=== PATIENT | male | born 1975 | race Caucasian/White ===

== ENCOUNTER 2019-05-25 10:19 | Day surgery (SDC) | payer OTHER ==
[2019-05-18 09:58] LABS: ABSOLUTE BASOPHILS # (AUTO) 0.1 10^3/uL (0.0-0.2); ABSOLUTE EOSINOPHILS # (AUTO) 0.6 10^3/uL (0.0-0.6); ABSOLUTE LYMPHOCYTES (AUTO) 1.8 10^3/uL (0.5-4.7); ABSOLUTE MONOCYTES (AUTO) 0.5 10^3/uL (0.1-1.4); ABSOLUTE NEUT (AUTO) 4.4 10^3/uL (1.7-8.2); EOSINOPHILS % (AUTO) 7.7 % (0-6); HEMATOCRIT 40.6 % (37.9-51.0); HEMOGLOBIN 14.2 g/dL (13.5-17.0); LYMPHOCYTES % (AUTO) 24.7 % (13-45); MEAN CORPUSCULAR HGB CONC 34.8 g/dL (32.0-36.0); MEAN CORPUSCULAR VOLUME 86 fl (80-97); MONOCYTES % (AUTO) 6.9 % (3-13); PLATELET COUNT 233 10^3/uL (150-450); RED BLOOD COUNT 4.71 10^6/uL (4.35-5.55); RED CELL DISTRIBUTION WIDTH 13.4 % (11.5-14.0); SEGMENTED NEUTROPHILS % (AUTO) 59.7 % (42-78); TOTAL CELLS COUNTED % (AUTO) 100 %; WHITE BLOOD COUNT 7.3 10^3/uL (4.0-10.5)
[2019-05-18 10:18] LABS: ANION GAP 9 (5-19); BLOOD UREA NITROGEN 20 mg/dL (7-20); CALCIUM 9.8 mg/dL (8.4-10.2); CARBON DIOXIDE 28 mmol/L (22-30); CHLORIDE 105 mmol/L (98-107); GLUCOSE 107 mg/dL (75-110)
--- NOTE | 2019-05-18 17:37 | EKG REPORT ---
SEVERITY:- BORDERLINE ECG - SINUS RHYTHM BORDERLINE LEFT AXIS DEVIATION CONSIDER INFERIOR INFARCT : Confirmed by: Mercy Bee MD 18-May-2019 14:57:15
[~2019-05-25 10:19] MED LIST: CEFAZOLIN SODIUM 2 GM in DEXTROSE 5%-WATER 100 ML IV PRN; LACTATED RINGERS 1000 ML IV PRN; LIDOCAINE 0.5% INJ-PF (5 MG/ML) 50 ML SDV SUBCUT PRN; NORMAL SALINE 1000 ML (RENAL PATIENTS) IV PRN
[2019-05-25] MEDS ORDERED: FENTANYL CITRATE INJ/PF 100 MCG/2 ML AMPUL ONE (11:47)
[2019-05-25] MEDS ORDERED: ONDANSETRON HCL INJ/PF 4 MG/2 ML SDV ONE (11:48)
[2019-05-25] MEDS ORDERED: DEXAMETHASONE SOD PHOSPHATE INJ 4 MG/1 ML VIAL ONE (11:48)
[2019-05-25] MEDS ORDERED: MIDAZOLAM 2 MG/2 ML INJ ONE (11:48)
[2019-05-25] MEDS ORDERED: PROPOFOL INJ 200 MG/20 ML VIAL IV ONE (11:48)
[2019-05-25] MEDS ORDERED: BUPIVACAINE HCL 0.5 % INJ/PF 30 ML SDV ONE (11:52)
--- NOTE | 2019-05-25 14:28 | Operative Report ---
Operative Report DATE OF SURGERY: 05/25/19 PREOPERATIVE DIAGNOSIS: Left small finger flexor tendon laceration with possible rerupture POSTOPERATIVE DIAGNOSIS: Left small finger flexor tendon rerupture, common digital nerve laceration fourth webspace OPERATION: Left small finger flexor tendon repair zone III secondary without autograft. Reconstruction left fourth webspace, digital nerve with allograft SURGEON: LUCIO AZEVEDO ANESTHESIA: GA COMPLICATIONS: None ESTIMATED BLOOD LOSS: Minimal PROCEDURE: Indication for above procedure: 43-year-old male who sustained a flexor tendon laceration and a laceration of the common digital nerve to the fourth webspace surgery was done in outside facility. Patient had been doing well until he felt a pop in his hand while lifting an object and subsequent has been unable to bend his finger since that time. At that point we discussed treatment options including operative versus nonoperative intervention after discussing risks benefits and operative indications decision was made to proceed with operative treatment. Risks and benefits of the operative procedure were explained patient verbalized understanding consented for surgical procedure. Procedure In Detail: Patient was seen and evaluated in the preoperative holding area. The LEFT upper extremity was initialized and marked. Patient received 2g of Ancef IV for bacterial prophylaxis. Patient was taken back to the operative room where transferred to the operative table and placed under general anesthesia. Once they were adequately anesthetized a nonsterile tourniquet was placed on the upper extremity. A surgical team debriefing was performed ensuring all instrumentation was available, the surgical procedure was discussed with possible concerns reviewed. The upper extremity was prepped with chlorhexidine and alcohol and draped in a sterile fashion. A timeout was done identifying correct patient, procedure and extremity everyone in attendance agree with this and verbalized no concerns. The extremity was exsanguinated the tourniquet was inflated to 250 mmHg. Previous skin incision was utilized and extended proximally along Guyon's canal and distally just past the MP flexion crease along the proximal phalanx. Blunt dissection and meticulous dissection was performed proximal and distal to the zone of injury identifying the radial digital nerve of the small finger and ulnar digital nerve to the ring finger there was scarring of these proper digital nerves to a neuroma extending to the common digital nerve. There was rupture of the previous flexor tendon repair just proximal to the A1 razia. A1 razia was released including the palmar aponeurotic razia in the FDP tendon was identified and via traction proximal to the tendon edge was able to be pulled out to length. Distally the FDP tendon was identified along with the FDS which had scarred down to the volar surface of the metacarpal given the longevity of patient's injury did not feel repair of the FDS would likely improve patient's function and thus decision was made to proceed with FDP repair. FDP was debrided proximally and distally and the tendon edges were reapproximated with a 3-0 Supramid stitch utilizing a cross cruciate repair obtaining 8 strands of fixation. Epitendinous repair was then performed with running 5-0 Prolene suture. At completion there is no evidence of locking or catching along the razia digit rest into a flexed position. Neuro lysis was performed to the common digital nerve to the fourth webspace and the radial and ulnar digital nerves to the small finger and ring finger respectively. A 15 mm gap was noted and thus decision was made to place allograft. Allograft was thawed onto the back table and a 2 mm x 30 mm allograft was utilized. The proper digital nerves were then reapproximated to the nerve graft utilizing 8-0 nylon suture. The proximal common digital nerve was then reapproximated to the nerve graft with 8-0 nylon suture. The repair was then reinforced with fibrin glue. There is no evidence of nerve kinking with flexion extension of the digit and repair was performed in a tensionless fashion. Wound was then copiously irrigated with normal saline. Tourniquet was deflated patient in normal peripheral perfusion. Any peripheral bleeding was controlled with bipolar cautery until the wound was dry. Skin was closed with interrupted 4-0 nylon suture. 20 cc of 0.5% bupivacaine without epinephrine was injected for postoperative pain control. Wound dressed with Xeroform 4 x 4's and patient was placed in a dorsal blocking splint with the wrist at neutral extension MP joints at 60 degrees of flexion IP joints at neutral extension. Sponge counts, instrument counts, needle counts were correct. Patient was then awoken from anesthesia. Transferred from the operating room table to the operating room stretcher. There was no intraoperative complications patient tolerated procedure well stable to PACU. Postop plan: Patient will begin occupational therapy 7 days postoperatively as per [place] protocol. Patient will be fit for a thermoplastic splint.
--- NOTE | 2019-05-25 14:57 | Discharge Summary ---
Discharge Summary (SDC) - Discharge Final Diagnosis: Left small finger flexor tendon laceration Date of Surgery: 05/25/19 Discharge Date: 05/25/19 Condition: Good Treatment or Instructions: Schedule Follow Up w/ Dr. Terry Hooper @ [facility] to be seen in 10-14 days or as scheduled [place]: [place]: [place]: Ice and elevate Keep splint clean/dry/intact, do not remove. If your fingers become numb please unwrap the Ángel wrap but leave the splint in place, if the sensation does not return within 30 minutes please return to the emergency department. May begin finger range of motion attempting to make full fist. Please use ibuprofen (Motrin or Advil) 600-800 mg every 8 hours as needed for pain or fever DO NOT TAKE w/ TORADOL may use once TORADOL complete. You may also use acetaminophen (Tylenol) 1000 mg every 4-6 hours as needed for pain or fever. Please be aware that many medications contain acetaminophen, do not exceed a total of 1000 mg of acetaminophen every 6 hours. If ibuprofen and acetaminophen are not sufficient for your pain you may take the Percocet/[place]. Please be aware that the Percocet/[place] does contain Tylenol. Stool softener of choice when on pain medication. USE OF [id number] IBUPROFEN: Ibuprofen (Advil, Nuprin, Medipren, Motrin IB) is a medication for fever and pain control. In addition, it has anti- inflammatory effects which may be beneficial, especially in the treatment of injuries. It's best to take ibuprofen with food. Persons with ulcer disease or allergy to aspirin should notify their physician of this before taking ibuprofen. Ibuprofen can be given every four to six hours, for a total of four doses daily. Age Pain or fever dose Antiinflammatory dose 6-8 yr 200 mg (1 tab) 200 mg (1 tab) 9-11 yr 200 mg (1 tab) 200-400 mg (1-2 tab) 11-14 yr 200-400 mg (1-2 tab) 400 mg (2 tab) 15-adult 400 mg (2 tab) 600 mg (3 tab) ORAL NARCOTIC MEDICATION: You have been given a prescription for pain control. This medication is a narcotic. It's best taken with food, as nausea can result if taken on an empty stomach. Don't operate machinery or drive within six hours of taking this medication. Do not combine this medicine with alcohol, or with any medication which can cause sedation (such as cold tablets or sleeping pills) unless you get permission from the physician. Narcotics tend to cause constipation. If possible, drink plenty of fluids and eat a diet high in fiber and fruits. Please be aware that prescription narcotics also have the potential for abuse. People become addicted to these medications because of the general sense of wellbeing that they induce. This feeling along with a significant reduction in tension, anxiety, and aggression provides a stimulating seductive quality to these drugs. Once your pain is under control, we encourage you to discard your unused narcotics. Prescriptions: Oxycodone HCl/Acetaminophen [Percocet 5-325 mg Tablet] 1 tab PO Q6 PRN #25 tab PRN Reason: Referrals: HERSON GREENBERG [Primary Care Provider] - Discharge Diet: As Tolerated Respiratory Treatments at Home: Deep Breathing/Coughing Discharge Activity: No Lifting Over 10 Pounds, No Lifting/Push/Pulling Report the Following to Your Physician Immediately: Fever over 101 Degrees, Unusual Bleeding, Redness, Swelling, Warmth
[2019-05-25] MEDS ORDERED: MORPHINE SULFATE 10 MG/ML INJ IV PRN (15:16)
[2019-05-25] MEDS ORDERED: OXYCODONE-ACETAMINOPHEN 5-325 MG TABLET PO PRN (15:16)
[2019-05-25] MEDS ORDERED: ONDANSETRON HCL INJ/PF 4 MG/2 ML SDV IV PRN (15:16)
[2019-05-25] MEDS ORDERED: OXYCODONE-ACETAMINOPHEN 5-325 MG TABLET ONE (15:22)
[2019-05-25 17:20] VITALS: BP 130/87
== END 2019-05-25 16:40 | disposition home or self-care (01) ==
LOC: OROUT 10:19
PROVIDERS: ATTEND Orthopaedic Surgery
DX: S56.198 Other injury of flexor muscle, fascia and tendon of left little finger at forearm level (principal); S64.497A Injury of digital nerve of left little finger, initial encounter; W26.0XXA Contact with knife, initial encounter; Z79.899 Other long term (current) drug therapy; I10 Essential (primary) hypertension; Z90.5 Acquired absence of kidney
CPT/HCPCS: 93005; 36415; 85025; 80048; 93010; 01810; 26350; 64912; C9250; C1769; J2250; J3490; J0690; J1100; J3010; J2405; J7060; J2704; 1810